=== PATIENT | female | born 1980 | race African-American/Black ===

== ENCOUNTER 2020-08-01 09:54 | Emergency (ER) | payer OTHER, MEDICAID ==
[~2020-08-01] VITALS: Ht 165.1 cm; Wt 86.0 kg
[2020-08-01] MEDS ORDERED: LORTAB 1010 MG PO (10:14)
[2020-08-01] MEDS ORDERED: AMOXICILLIN500 MG PO (10:14)
[2020-08-01 10:35] VITALS: BP 119/58
== END 2020-08-01 10:37 | disposition home or self-care (01) | DRG 159 ==
LOC: ED 09:54
DX: K04.7 Periapical abscess without sinus (principal)

== ENCOUNTER 2023-06-21 13:45 | Emergency (ER) | payer OTHER ==
[~2023-06-21] VITALS: Ht 165.1 cm; Wt 108.0 kg
[2023-06-21] VITALS (9 sets, daily range): BP systolic 110–134; BP diastolic 58–84
[~2023-06-21 13:45] MED LIST: AMOXICILLIN500 MG PO; LORTAB 1010 MG PO
[2023-06-21 14:35] LABS: BASO% 0.6 % (0-3); EOS% 1.9 % (0-8); HEMATOCRIT 41.2 % (37.0-47.0); HEMOGLOBIN 14.1 g/dl (12.0-16.0); IMMATURE GRANULOCYTES 0.1 % (0.0-5.0); LYMPH% 38.6 % (15-41); MEAN CELL VOLUME 72.4 fL CALC (80.0-100.0); MEAN CORPUSCULAR HGB 24.8 pG CALC (26.0-32.0); MEAN CORPUSCULAR HGB CONC 34.2 g/dL CAL (32.0-36.0); MONO% 5.8 % (2-13); NEUT# 3.65 thou/uL (2.00-7.15); RED BLOOD COUNT 5.69 mill/uL (4.20-5.60); RED CELL DISTRI WIDTH 16.2 % (11.5-15.5)
[2023-06-21 14:51] LABS: ALKALINE PHOSPHATASE 99 u/l (38-126); ANION GAP 11 (6-22 (CALC)); BUN 14 mg/dL (7-17); BUN/CREATININE RATIO 21 (12-20 (CALC)); CARBON DIOXIDE 26 mmol/l (22-30); CHLORIDE 104 mmol/l (95-108); CREATININE 0.7 mg/dL (0.5-1.0); GFR FOR AFR.AMER. > 60 ML/MIN (>=60 (CALC)); GFR OTHER RACES > 60 ML/MIN (>=60 (CALC)); POTASSIUM 4.2 mmol/l (3.5-5.1); SODIUM 137 mmol/l (137-146); TOTAL PROTEIN 7.7 g/dL (6.3-8.2)
[2023-06-21 14:54] LABS: ALBUMIN 3.9 g/dL (3.2-5.0); BILIRUBIN, TOTAL 0.6 mg/dL (0.02-1.3); SGOT/AST 30 u/l (14-36)
[2023-06-21] MEDS ORDERED: KEFLEX500 MG PO (15:31)
== END 2023-06-21 15:55 | disposition home or self-care (01) | DRG 603 ==
LOC: ED 13:45
PROVIDERS: Family Medicine
DX: L03.114 Cellulitis of left upper limb (principal)

== ENCOUNTER 2023-07-27 17:40 | Emergency (ER) | payer OTHER ==
[~2023-07-27] VITALS: Ht 165.1 cm; Wt 108.0 kg
[~2023-07-27 17:40] MED LIST changes: +KEFLEX500 MG PO
[2023-07-27 18:02] VITALS: BP 113/64
[2023-07-27 18:25] LABS: BASO% 0.3 % (0-3); EOS% 1.4 % (0-8); HEMATOCRIT 39.7 % (37.0-47.0); HEMOGLOBIN 13.5 g/dl (12.0-16.0); IMMATURE GRANULOCYTES 0.1 % (0.0-5.0); LYMPH% 33.6 % (15-41); MEAN CELL VOLUME 71.7 fL CALC (80.0-100.0); MEAN CORPUSCULAR HGB 24.4 pG CALC (26.0-32.0); MONO% 5.9 % (2-13); NEUT# 4.51 thou/uL (2.00-7.15); NEUT% 58.7 % (42-76); RED BLOOD COUNT 5.54 mill/uL (4.20-5.60); RED CELL DISTRI WIDTH 15.6 % (11.5-15.5)
[2023-07-27 18:31] VITALS: BP 103/60
[2023-07-27 18:42] LABS: ALBUMIN 3.8 g/dL (3.2-5.0); ALKALINE PHOSPHATASE 89 u/l (38-126); ANION GAP 10 (6-22 (CALC)); BILIRUBIN, TOTAL 0.4 mg/dL (0.02-1.3); BUN 17 mg/dL (7-17); BUN/CREATININE RATIO 19 (12-20 (CALC)); C-REACTIVE PROTEIN 1.7 mg/dL (0-0.9); CARBON DIOXIDE 27 mmol/l (22-30); CHLORIDE 102 mmol/l (95-108); CREATININE 0.9 mg/dL (0.5-1.0); GFR FOR AFR.AMER. > 60 ML/MIN (>=60 (CALC)); GFR OTHER RACES > 60 ML/MIN (>=60 (CALC)); POTASSIUM 3.8 mmol/l (3.5-5.1); SGOT/AST 23 u/l (14-36); SODIUM 136 mmol/l (137-146); TOTAL PROTEIN 7.5 g/dL (6.3-8.2)
[2023-07-27 19:00] VITALS: BP 117/58
[2023-07-27] MEDS ORDERED: VIBRAMYCIN100 M2 PO (19:24)
[2023-07-27 19:30] VITALS: BP 133/66
[2023-07-27] MEDS ORDERED: DIFLUCAN150 MG PO (19:42)
[2023-07-27 19:57] VITALS: BP 133/66
== END 2023-07-27 19:59 | disposition home or self-care (01) | DRG 603 ==
LOC: ED 17:40
PROVIDERS: Nurse Practitioner
DX: L03.114 Cellulitis of left upper limb (principal)